=== PATIENT | male | born 2005 | race African-American/Black ===

== ENCOUNTER 2025-04-24 11:08 | Emergency (ER) | payer BC, SELFPAY ==
[2025-04-24 11:13] VITALS: BP 190/108; PULSE 100; RESP 20; TEMP 36.4; O2SAT 100
[2025-04-24 11:45] VITALS: BP 183/114; PULSE 78; RESP 16; TEMP 36.6; O2SAT 99
[2025-04-24 11:51] VITALS: RESP 16; O2SAT 99
--- NOTE | 2025-04-24 11:58 | PC.NURSE ---
RT at bedside.
[2025-04-24 12:07] LABS: Alveolar/Arterial O2 Gradient 7.0 mmHg; Carboxyhemoglobin 0.7 % THb (0-2.0); Fractional Inspired Oxygen 21 %; HCO3 ABG 23.2 mEq/l (22.0-26.0); Methemoglobin ABG 0.4 %THb (0-1.5); Oxygen Content ABG 21.8 %vol (16.0-22.0); Oxygen Saturation ABG 97.6 % (95.0-100.0); PCO2 ABG 36.7 mmHg (35.0-45.0); PO2 ABG 98.8 mmHg (80.0-100.0); PO2 FiO2 Ratio Arterial Blood 4.70 %; Reduced Hemoglobin 2.2 %THb (0-5.0); Site Drawn LEFT BRACHIAL
--- NOTE | 2025-04-24 12:38 | ED.GENADULT ---
HPI - General Adult General Chief complaint: Environmental Exposure Stated complaint: possible CO poisoning Time Seen by Provider: 04/24/25 12:12 Source: patient Mode of arrival: ambulatory Limitations: no limitations History of Present Illness HPI narrative: This is a 19-year-old male with history of hypertension who presents to the ED for concerns for carbon monoxide poisoning. 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 He states that he has issues with the exhaust is exhausting and is cabin. Today, it was worse prompting him to come to the ED. he reports that his symptoms have improved since presenting to the ED. denies chest pain, nausea vomiting. Denies any recent illnesses. Related Data Allergies Allergy/AdvReac Type Severity Reaction Status Date / Time No Known Allergies Allergy Mild Verified 04/24/25 11:52 Review of Systems Review of Systems: Gen.: Denies fevers or chills Eyes: Denies eye pain or visual change ENT: Denies congestion Respiratory: As per HPI CV: Denies chest pain or palpitations GI: Denies abdominal pain nausea, emesis or diarrhea denies burning, urgency, frequency or hematuria Musculoskeletal: Denies back pain or muscle pain Neuro: Denies numbness, tingling, weakness or focal weakness Skin: Denies rash Except as documented, all other systems reviewed and negative Exam Narrative: APPEARANCE: No acute distress, nontoxic, resting in bed EYES: EOMI HEENT: Normocephalic, atraumatic, OMM RESPIRATORY: No respiratory distress Clear to auscultation bilaterally with no rhonchi wheezing or rales. CARDIOVASCULAR: Regular rate and rhythm without murmurs rubs or gallops. ABDOMINAL: obese.Soft, nontender, nondistended, no rebound or guarding MUSCULOSKELETAl: Moves all extremities. No clubbing, cyanosis or edema. NEURO: Awake and alert. Following commands, speech normal, no focal deficits SKIN:: Warm, dry. No rashes lesions or abrasions PSYCHIATRIC: Normal affect/mood, Course Vital Signs Vital signs: Vital Signs Temperature 97.6 F 04/24/25 11:13 Pulse Rate 100 04/24/25 11:13 Respiratory Rate 20 04/24/25 11:13 Blood Pressure 190/108 H 04/24/25 11:13 Pulse Oximetry 100 04/24/25 11:13 Temperature 97.9 F 04/24/25 11:45 Pulse Rate 78 04/24/25 11:45 Respiratory Rate 16 04/24/25 11:51 Blood Pressure 183/114 H 04/24/25 11:45 Pulse Oximetry 99 04/24/25 11:51 Oxygen Delivery Room Air 04/24/25 11:45 Medical Decision Making MDM Narrative Medical decision making narrative: 19-year-old male Presenting for concerns for carbon monoxide poisoning. On initial evaluation patient was in no acute distress afebrile, hemodynamic stable. Blood pressure noted to be hypertensive to 190s/100s. Differentials include but are not limited to: Carbon monoxide exposure, carbon monoxide poisoning, anxiety, hypertension, hypertensive urgency, hypertensive emergency Notable exam findings: Heart and lungs clear. No cyanosis I personally reviewed the patient's lab result. Notable lab findings: ABG showed correct hemoglobin within normal limits Patient has no evidence of carbon monoxide poisoning at this time. However, he does have possible significant exposures so he was advised to get his truck that so he does not get exposed as often to the carbon monoxide. Patient also used to be on medications for hypertension but he stopped taking them because he ?felt weird?. He is hypertensive here but is asymptomatic from that standpoint, denied chest pain shortness of breath, headache, changes in vision. He will be started on amlodipine. He was advised follow-up with his PCP in the next week for re-evaluation. Patient was agreeable to this plan. Given strict return precautions. Medical Records Medical records reviewed: Yes I reviewed the external patient's medical records. Vital Signs Vital Signs: Vital Signs Temperature 97.6 F 04/24/25 11:13 Pulse Rate 100 04/24/25 11:13 Respiratory Rate 20 04/24/25 11:13 Blood Pressure 190/108 H 04/24/25 11:13 Pulse Oximetry 100 04/24/25 11:13 Temperature 97.9 F 04/24/25 11:45 Pulse Rate 78 04/24/25 11:45 Respiratory Rate 16 04/24/25 11:51 Blood Pressure 183/114 H 04/24/25 11:45 Pulse Oximetry 99 04/24/25 11:51 Oxygen Delivery Room Air 04/24/25 11:45 Lab Data Labs: Lab Results 04/24/25 Range/Units 12:04 Methemoglobin 0.4 (0-1.5) %THb ABG Data ABG results: 04/24/25 12:04 Puncture Site Left brachial ABG pH 7.419 ABG pCO2 36.7 ABG pO2 98.8 ABG PO2/FiO2 Ratio 4.70 ABG HCO3 23.2 ABG O2 Saturation 97.6 ABG O2 Content 21.8 ABG Base Excess -0.8 A-a Gradient 7.0 Oxyhemoglobin 96.7 Carboxyhemoglobin 0.7 Reduced Hemoglobin 2.2 Total Hemoglobin 16.0 O2 Delivery Device Room air O2 Liters/Min Not Reportable FiO2 21 Attestation: I personally reviewed and interpreted this ABG as follows: Interpretation: Normal ABG, no carbon monoxide poisoning Discharge Plan Discharge Clinical Impression: Carbon monoxide exposure Hypertension Qualifiers: Hypertension type: unspecified Qualified Code(s): I10 - Essential (primary) hypertension Patient Disposition: Home Condition: Stable Instructions: Antibiotic Form, Hypertension (ED) Additional Instructions: Try to get her truck fixed if he can. Take amlodipine as prescribed. Follow-up with her PCP in the next week for re-evaluation. Return to the ED for any new or worsening symptoms. Patient Language: Iranian Prescriptions: New amlodipine 10 mg tablet 10 mg PO DAILY Qty: 30 0RF Follow-up/Referrals: Dee Summers MD [Primary Care Provider, Pediatrics]
== END 2025-04-24 13:00 | disposition home or self-care (01) ==
LOC: ANHED 12:50
PROVIDERS: Physician Assistant; Emergency Provider Student in an Organized Health Care Education/Training Program; PCP Pediatrics
DX: Z77.098 Contact with and (suspected) exposure to other hazardous, chiefly nonmedicinal, chemicals (principal); I10 Essential (primary) hypertension; T46.5X6A Underdosing of other antihypertensive drugs, initial encounter; Z91.128 Patient's intentional underdosing of medication regimen for other reason
CPT/HCPCS: 36600; 82375; 82805; 83050; 85018; 99283